=== PATIENT | female | born 1975 | race Two or more races ===

== ENCOUNTER 2016-09-07 19:05 | Emergency (ER) | payer BC, MEDICAID ==
[2016-09-07 19:15] VITALS: BP 113/59; PULSE 85; RESP 16; TEMP 98.2; O2SAT 95
--- NOTE | 2016-09-07 19:43 | EDPHY ---
H & P Time Seen by Provider: 09/07/16 19:21 HPI/ROS: This patient complains of diffuse pruritus. Her symptoms started last week and she saw her primary care physician who encouraged her to try Aurelia which she tried without improvement after Benadryl failed because it made her very anxious. She reports associated insomnia that she attributes to the itching and she has been scratching her skin. There is no associated rash except for ford where she has been scratching herself. ROS: No fevers or chills. No other constitutional symptoms. HEENT: She reports seasonal allergies with coryza no sinus pain. Neuro: She reports vertiginous symptoms last week that have since resolved. No other neuro complaints. Pulmonary: No cough or wheeze. No shortness of breath. Cardiovascular: No complaints Integumentary: No antecedent skin rash prior to the itching. Endocrine/immunology: She reports no recent obvious allergic exposures. No new pets, new soaps or other. Psychiatric: Patient reports insomnia only sleeping 4 hours a night since the onset of the itching. 7 point ROS is otherwise negative. Social History: She does not use any drugs. She reports very rare alcohol use Smoking Status: Never smoked Physical Exam: General Appearance: Alert, no distress. Eyes: Pupils equal and round no pallor or injection. ENT, Mouth: Mucous membranes moist. Nose: Clear coryza. No angioedema, dysphonia or stridor. Respiratory: There are no retractions, lungs are clear to auscultation. No wheezing. Cardiovascular: Regular rate and rhythm. Gastrointestinal: Abdomen is soft and nontender, no masses, bowel sounds normal. Neurological: GCS 15. Skin: There is no urticaria, petechiae or purpura. In fact no rash except for abrasions were she has been scratching her back. Musculoskeletal: Neck is supple nontender. Extremities are symmetrical, full range of motion. Psychiatric: Mood and affect normal with no obvious anxiety. DIFFERENTIAL DIAGNOSIS: After history and physical exam differential diagnosis was considered for anxiety related pruritus, seasonal allergies, cholestatic pruritus Constitutional: Initial Vital Signs Temperature (C) 36.8 C 09/07/16 19:12 Heart Rate 85 09/07/16 19:12 Respiratory Rate 16 09/07/16 19:12 Blood Pressure 113/59 L 09/07/16 19:12 O2 Sat (%) 95 09/07/16 19:12 O2 Delivery Mode Room Air Allergies/Adverse Reactions: naproxen sodium [From Aleve] Allergy (Severe, Verified 09/07/16 19:11) SWELLING TO LIPS,AMMY Home Medications: Medication Instructions Recorded Zaleplon [Sonata] 10 mg PO HS PRN #5 capsule 09/07/16 hydrOXYzine HCL [Hydroxyzine HCl] 50 - 100 mg PO Q6 PRN #50 tablet 09/07/16 MDM/Departure - [facility] Course/Re-evaluation: This patient appears clinically well without evidence of anaphylaxis or urticaria. - Depart Disposition: Home, Routine, Self-Care Clinical Impression: Generalized pruritus Insomnia Qualifiers: Insomnia type: unspecified Qualified Code(s): G47.00 - Insomnia, unspecified Clinical Impression: (Ruled Out): Urticaria Condition: Good Instructions: Insomnia (ED), Itchy Skin (ED) Additional Instructions: Diagnoses: 1. Itchy skin 2. Insomnia Plan: Hydroxyzine for itching as needed Sonata for sleep as needed Follow up with primary care physician for any ongoing symptoms despite the treatment plan. Prescriptions: hydrOXYzine HCL [Hydroxyzine HCl] 50 - 100 mg PO Q6 PRN #50 tablet PRN Reason: Itching Zaleplon [Sonata] 10 mg PO HS PRN #5 capsule PRN Reason: insomnia Referrals: KATALINA MONTOYA,Marj [Primary Care Provider] - As per Instructions
== END 2016-09-07 19:48 | disposition home or self-care (01) ==
LOC: CED 19:05
DX: L29.9 Pruritus, unspecified (principal); G47.00 Insomnia, unspecified

== ENCOUNTER 2018-09-22 17:17 | Emergency (ER) | payer BC, MEDICAID ==
[2018-09-22 17:32] VITALS: BP 128/69
--- NOTE | 2018-09-22 18:04 | EDPHY ---
H & P Time Seen by Provider: 09/22/18 17:24 HPI/ROS: CHIEF COMPLAINT: Left wrist pain HISTORY OF PRESENT ILLNESS: Patient states that approximately 2-3 weeks ago she fell on her left wrist. She states she tripped over the gas toes on a gas pump while filling her tank. She had left wrist pain and swelling afterwards but no other injuries. She states she was never pain-free although was able to use her arm and wrist normally. Approximately 48 hr ago on Saturday she bumped the ulnar aspect of her left wrist on the cart or shutting at which increase the pain. She states she notices a "bump" in the area where the pain is the worst. 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 That is gone and she has had none since. REVIEW OF SYSTEMS: Negative except per HPI. General Appearance: Alert, no distress. Eyes: Pupils equal and round no icterus Respiratory: No respiratory distress Neurological: Awake, alert, no focal deficits. Skin: Warm and dry, no rashes. Musculoskeletal: Neck is supple nontender. Extremities are symmetrical, full range of motion, no edema. Tenderness to palpation on the ulnar styloid region of the left wrist. No snuffbox tenderness. Distal circulation, sensation, movement intact. Psychiatric: Patient is oriented X 3, there is no agitation. Medical/surgical history: Noncontributory Social history: Denies tobacco, EtOH, drugs. 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 Smoking Status: Never smoked Constitutional: Initial Vital Signs Temperature (C) 37.1 C 09/22/18 17:26 Heart Rate 74 09/22/18 17:26 Respiratory Rate 16 09/22/18 17:26 Blood Pressure 128/69 H 09/22/18 17:26 O2 Sat (%) 95 09/22/18 17:26 O2 Delivery Mode Room Air Allergies/Adverse Reactions: naproxen sodium [From Aleve] Allergy (Severe, Verified 09/22/18 18:20) SWELLING TO LIPS,AMMY Medical Decision Making - Diagnostics Imaging Results: Imaging Impressions Wrist X-Ray 09/22/18 17:38 Impression: No evidence for acute osseous abnormality left breast. Imaging: I viewed and interpreted images myself Differential Diagnosis: Differential diagnosis includes fracture, subluxation, sprain, strain, contusion. After evaluation no evidence of fracture, neurovascular compromise, other acute bony injury. Likely strain or sprain. Placed in a Velcro splint. Discussed ice and ibuprofen. Follow up as necessary. Stable for discharge. Departure - Departure Disposition: Home, Routine, Self-Care Clinical Impression: Wrist sprain Qualifiers: Encounter type: initial encounter Laterality: left Qualified Code(s): S63.502A - Unspecified sprain of left wrist, initial encounter Condition: Good Instructions: Wrist Sprain (ED) Additional Instructions: Use the wrist splint as discussed. Ice and ibuprofen for pain as needed. If not improving after wearing the splint for 1 week follow up with [facility] for re- evaluation. Referrals: LINDSAY DARDEN [Other] - As per Instructions
== END 2018-09-22 18:30 | disposition home or self-care (01) ==
LOC: CED 17:17
DX: S63.502A Unspecified sprain of left wrist, initial encounter (principal); W01.0XXA Fall on same level from slipping, tripping and stumbling without subsequent striking against object, initial encounter; Y92.524 Gas station as the place of occurrence of the external cause
CPT/HCPCS: 73110-PO; 99283-ER; L3984-ER